=== PATIENT | female | born 1935 | race Caucasian/White ===

== ENCOUNTER 2023-07-09 09:38 | Outpatient (CLI) | payer OTHER, SELFPAY | END 2023-07-09 09:39 | disposition home or self-care (01) | LOC: ANHBWCAUD 09:39 | PROVIDERS: PCP Family Medicine; Visit Provider Otolaryngology | DX: H90.3 Sensorineural hearing loss, bilateral (principal) | CPT/HCPCS: 92557; 92567; 99199 ==

== ENCOUNTER 2024-01-12 13:51 | Inpatient (IN) | payer OTHER, SELFPAY ==
[2024-01-12] VITALS (26 sets, daily range): BP systolic 111–128; BP diastolic 76–97; PULSE 75–161; RESP 15–23; TEMP 36.3–36.7; O2SAT 91–100; BMI 21.3
--- NOTE | ~2024-01-12 | XR_ITS ---
EXAMINATION: XR chest 1V portable DATE: 01/12/2024 14:17 INDICATION: Altered mental status. TECHNIQUE: A single frontal view of the chest was obtained. COMPARISON: None. FINDINGS: Alayna B-lines are noted, consistent with mild pulmonary edema. A calcified right lung nodu le is consistent with old granulomatous disease. No pleural effusion or pneumothorax. Cardiomegaly is noted. IMPRESSION: 1. Mild pulmonary edema. 2. Cardiomegaly. Reviewed, dictated and finalized at location E.
--- NOTE | ~2024-01-12 | CT_ITS ---
EXAMINATION: CT brain wo con DATE: 01/12/2024 15:18 INDICATION: Aphasia. Right-sided facial weakness. TECHNIQUE: Computed tomography (CT) of the head was performed without intravenous contrast. The mA wa s adjusted according to patient size. Iterative reconstruction technique was employed. The dose-lengt h product was 605.33 mGy-cm. COMPARISON: None FINDINGS: There is an infarct involving left temporal occipital region. There are scattered areas of low attenuation in the cerebral white matter. There is no intracranial hemorrhage or abnormal mass le shahla. There is mucosal thickening in the paranasal sinuses. The mastoid air cells are normal. There a re likely changes of ocular lens replacement surgeries. IMPRESSION: 1. Acute versus subacute infarct involving left temporal occipital region. 2. Extensive nonspecific cerebral white matter disease, which likely represents chronic small vessel ischemic disease. Reviewed, dictated and finalized at location E.
--- NOTE | ~2024-01-12 | XR_ITS ---
XR chest 1V portable 01/16/2024 10:37 Indication: Altered mental status Procedure: AP portable chest Comparison: 01/12/2024 Findings: Cardiomegaly. There are calcified right hilar lymph nodes, consistent with chronic granulom atous infection. No significant pleural effusion or pneumothorax. No focal airspace disease. No edema. Impression: 1: No acute cardiopulmonary disease. Reviewed, dictated and finalized at location B. Impression: 1: No acute cardiopulmonary disease.
--- NOTE | ~2024-01-12 | MR_ITS ---
EXAMINATION: MRA brain wo con DATE: 01/13/2024 18:22 INDICATION: Stroke. Aphasia. TECHNIQUE: Magnetic resonance angiography (MRA) of the brain was performed without intravenous contra st with T1-weighted SPGR by the 3D [id number] technique. Maximum intensity projection 3D-reconstr uctions were obtained. COMPARISON: Brain MRI 01/13/2024 FINDINGS: Right vertebral artery is dominant. There is no significant stenosis of basilar artery or the posteri or cerebral arteries. There is no significant stenosis of the intracranial internal carotid arteries or anterior or middle cerebral arteries. Anterior communicating artery is normal. Right posterior com municating artery is normal. A left posterior communicating artery is not identified. IMPRESSION: 1. No aneurysm or significant intracranial arterial stenosis. Reviewed, dictated and finalized at location E.
--- NOTE | ~2024-01-12 | US_ITS ---
EXAMINATION: US carotid duplex BI DATE: 01/13/2024 14:20 INDICATION: Left-sided stroke with worsening aphasia TECHNIQUE: Grayscale, color Doppler, and pulsed Doppler images of the cervical carotid arteries were obtained. The degree of vessel stenosis is placed in one of the following categories: normal, <50%, 5 0-69%, >=70% but less than near-occlusion, near-occlusion, or total occlusion. Note that percent sten osis relative to normal distal artery lumen diameter is indirectly measured from velocity measurement s as described by Manan, et al. Radiology 2003; 229:340-346. COMPARISON: None. FINDINGS: RIGHT: The right common carotid artery (CCA) peak systolic velocity (PSV) is 43 cm/s. The right internal car otid artery (ICA) PSV is 46 cm/s. The right ICA end-diastolic velocity (EDV) is 13 cm/s. The right IC A/CCA PSV ratio is 1.1. Grayscale and color Doppler images yield an estimate of <50% diameter reducti on from plaque in the ICA. The external carotid artery (ECA) PSV is 46 cm/s. There is antegrade flow in the right vertebral artery. LEFT: The left CCA PSV is 49 cm/s. The left ICA PSV is 51 cm/s. The left ICA EDV is 15 cm/s. The left ICA/C CA PSV ratio is 1.0. Grayscale and color Doppler images yield an estimate of <50% diameter reduction from plaque in the ICA. The ECA PSV is 102 cm/s. There is retrograde high flow with high resistance w aveform in the left vertebral artery. IMPRESSION: 1. <50% stenosis in the right internal carotid artery. 2. <50% stenosis in the left internal carotid artery. 3. Flow reversal in the left vertebral artery. 4. Cardiac arrhythmia is present. Correlate with EKG. Reviewed, dictated and finalized at location A.
--- NOTE | ~2024-01-12 | MR_ITS ---
EXAMINATION: MR brain/brain stem wo con DATE: 01/13/2024 12:08 INDICATION: Worsening aphasia. TECHNIQUE: Magnetic resonance imaging (MRI) of the brain and brainstem was performed without intraven ous contrast. COMPARISON: Head CT 01/12/24 FINDINGS: There is an acute infarct involving left temporal occipital region. Low signal in this dist ribution on susceptibility weighted imaging may be calcifications or microhemorrhage. There is an acu te infarct involving the left frontal lobe. There are foci of cortical calcification in left parietal lobe, consistent with cortical necrosis. There are scattered areas of nonspecific increased T2-weigh johan signal intensity in the cerebral white matter. There is no abnormal mass lesion. The ventricles a re normal in size. There are likely changes of ocular lens replacement surgeries. There is mucosal th ickening in the paranasal sinuses. The mastoid air cells are normal. IMPRESSION: 1. Acute infarct in left temporal occipital region with foci of calcifications versus microhemorrhage . 2. Acute infarct in left frontal lobe. 3. Foci of chronic cortical necrosis in left parietal lobe. Reviewed, dictated and finalized at location E. IMPRESSION: 1. Acute infarct in left temporal occipital region with foci of calcifications versus microhemorrhage. 2. Acute infarct in left frontal lobe. 3. Foci of chronic cortical necrosis in left parietal lobe.
--- NOTE | 2024-01-12 14:11 | ED.NEUROSD ---
HPI - Neuro Symptoms/Deficit General Chief Complaint: Neuro Symptoms/Deficit Stated Complaint: poss CVA Time Seen by Provider: 01/12/24 13:58 Limitations: language barrier and altered mental status History of Present Illness HPI Narrative: This is an 88-year-old female, with recent history of stroke 5 days ago for which she received tenecteplase at an outside hospital, brought in by EMS from her [facility] for 1 day's worth of worsening aphasia. Per EMS, [facility] staff noted the patient previously aphasia, though was able to identify objects. Yesterday they noticed symptoms were worsening around 13:00. Today, her symptoms continued and EMS was called. The patient is unable to adequately verbalize symptoms though indicates no pain or obvious complaints. Related Data Home Medications Medication Instructions Recorded Confirmed furosemide 20 mg tablet 20 mg PO QAM 05/16/23 01/12/24 aspirin 325 mg tablet,delayed 325 mg PO DAILY 01/08/24 01/12/24 release metoprolol tartrate 50 mg tablet 50 mg PO Q12H 01/08/24 01/12/24 enoxaparin 30 mg/0.3 mL 30 mg subcut DAILY 01/12/24 01/12/24 subcutaneous syringe pantoprazole 40 mg tablet,delayed 40 mg PO QAM 01/12/24 01/12/24 release Allergies Allergy/AdvReac Type Severity Reaction Status Date / Time Penicillins Allergy Intermediate Swelling Verified 01/08/24 13:06 iodine Allergy Anaphylaxis Verified 01/12/24 14:29 shell fish Allergy Intermediate Unknown Uncoded 01/08/24 13:06 Review of Systems Review of Systems: ROS unobtainable: Yes unobtainable due to mental status PMFSH Past Medical History Medical History A-fib Arthritis CVA (cerebral vascular accident) FH: HTN (hypertension) GERD (gastroesophageal reflux disease) Family History Family History Father Hypertension Mother Hypertension Cerebrovascular accident Sibling Hypertension Heart disease Social History Social History Social History: Caffeine-coffee Smoking status: Former smoker Alcohol intake: never Substance use: never Substance use type: does not use Do You Feel Safe in your Home?: Yes Lack of Transportation: No Lack of Food: Never True Current Housing: I Have Housing Concerned About Future Housing: No Difficulty Paying Gas/Electric Bills: No Difficulty Paying for Meds: No Currently Unemployed: No Education: High School Diploma/GED Difficulty w/ Childcare or Family Care: No Occupation/Education: retired Gender identity (if verbalized by the patient): Female Spiritual care concerns: No Agree to blood products: Yes Exam Narrative: GENERAL: Well-developed, well-nourished, and in no acute distress. HEAD: Normocephalic, atraumatic. EYES: PERRLA and EOMI. ENT: Nares clear, no rhinorrhea or epistaxis. Mucous membranes moist. Oropharynx without tonsillar hypertrophy exudate or other lesions. CHEST: Clear to auscultation. No respiratory distress. No wheezes rales or rhonchi HEART: Regular rate and rhythm. No murmur heard. Normal peripheral pulses. ABDOMEN: Soft, nontender, nondistended, normal active bowel sounds. EXTREMITIES: Normal range of motion. No edema. SKIN: Warm, dry, no rash. NEURO: Alert. Word salad. Unable to identify objects. Follows commands. Moving all 4 limbs spontaneously PSYCH: Normal mood and affect. Course Course Emergency Course: 14:09 - Initial NIH 3 with baseline deficits. Given the patient's recent treatment with tenecteplase, recent ischemic stroke and onset of symptoms 24 hours ago, though she is not a candidate for thrombolytics. CT head not concerning for intracranial hemorrhage and shows changes consistent with a recent ischemic stroke without other acute findings. I discussed the patient with neurologist, Dr. Dawson who recommends observation and consider
--- NOTE | 2024-01-12 14:12 | ECG_ITS ---
SEE SCANNED COPY FOR CONFIRMED REPORT MTDD
[2024-01-12 14:28] LABS: Basophils Absolute Auto 0.1 K/mm3 (0.0-0.1); Basophils Percent Auto 0.6 % (0.2-1.2); Eosinophils Absolute Auto 0.2 K/mm3 (0-0.3); Hematocrit 44.7 % (37.0-47.0); Hemoglobin 14.1 g/dL (12.0-15.0); Immature Granulocyte Absolute 0.03 K/mm3 (0.00-0.031); Immature Granulocyte Percent A 0.3 % (0-0.5); Lymphocytes Absolute Auto 1.84 K/mm3 (0.9-3.2); Lymphocytes Percent Auto 19.1 % (18.3-44.2); Mean Corpuscular HGB Conc 31.5 g/dl (32-36); Mean Corpuscular Volume 88.9 fl (80-100); Mean Platelet Volume 10.3 fl (7.4-10.4); Monocytes Percent Auto 10.7 % (2.6-8.5); Neutrophils Absolute Auto 6.5 K/mm3 (1.3-6.7); Neutrophils Percent Auto 67.3 % (45.5-73.1); Platelet Count Result 345 k/mm3 (150-375); Red Blood Count 5.03 M/mm3 (4.2-5.4); Red Cell Distribution Width 14.1 % (11.5-14.5); White Blood Count 9.6 K/mm3 (4.5-10.0)
[2024-01-12 14:37] LABS: Ethanol < 10 mg/dL (<10)
[2024-01-12 14:38] LABS: Alanine Aminotransferase 23 U/L (6-35); Albumin Level 4.2 g/dL (3.5-5.1); Alkaline Phosphatase 110 U/L (38-126); Anion Gap 6 mmol/L (4-12); Aspartate Amino Transferase 30 U/L (14-36); Bilirubin,Total 0.5 mg/dL (0.2-1.3); Blood Urea Nitrogen 33 mg/dL (7-17); Calcium 9.5 mg/dL (8.4-10.2); Carbon Dioxide 30 mmol/L (22-30); Chloride 103 mmol/L (98-107); Estimated CRCL calculation 28 ml/min; Estimated Glomerular Filt Rate 52; Glucose 122 mg/dL (65-110); Sodium 139 mmol/L (137-145)
[2024-01-12 14:39] LABS: Prothrombin Time 13.8 Seconds (11.1-14.7)
[2024-01-12 14:40] LABS: Partial Thromboplastin Time 32.5 Seconds (22.3-36.8)
[2024-01-12 15:04] LABS: Influenza A QL RT-PCR Negative (Negative); Influenza B QL RT-PCR Negative (Negative); RSV RNA, RT-PCR Negative (Negative); SARS-CoV-2 RNA PCR Negative (Negative)
[2024-01-12 15:44] LABS: Appearance Urine Clear (Clear); Bilirubin Urine Negative (Negative); Blood Urine Negative (Negative); Color Urine Yellow (Yellow); Glucose Urine UA Negative (Negative); Ketones Urine Negative (Negative); Leukocyte Esterase Ur Negative LEU/UL (Negative); Nitrate Urine Negative (Negative); Protein Urine Negative (Negative); Urobilinogen Urine 0.2 mg/dL (<2.0); pH Urine 5.5 (5.0-9.0)
[2024-01-12 15:48] LABS: Add Urine Microscopic? NO
[2024-01-12 16:02] LABS: Amphetamine Screen Urine Negative (Negative); Barbiturate Screen Urine Negative (Negative); Benzodiazepines Screen Urine Negative (Negative); Cannabinoid Screen Urine Negative (Negative); Cocaine Screen Urine Negative (Negative); Methadone Screen Urine Negative (Negative); Opiate Screen Urine Negative (Negative); Phencyclidine Screen Urine Negative (Negative)
--- NOTE | 2024-01-12 18:09 | ADMGEN ---
This patient, Gwen Kaiser, was admitted to IMU Room 206-02. Patient/family oriented to hospital policies and general routines including ID bracelet, bed and alarms, visiting hours, pain management, procedures, bathroom and other care routines, personal items, smoking policy, room service/diet, and visiting hours. Information on how to activate the Rapid Response Team has been discussed. Patient/Family are encouraged to report perceived risks to care and to ask questions if they do not understand what they are told or what they should do.
--- NOTE | 2024-01-12 20:18 | PM.IMHP ---
H&P: HPI History of Present Illness Date/Time: 01/12/24 20:18 Chief Complaint: AMS Narrative: THIS IS AN 88-YEAR-OLD FEMALE WITH PAST MEDICAL HISTORY SIGNIFICANT FOR RECENT STROKE PATIENT WAS DISCHARGED FROM AN OUTSIDE FACILITY TO REHABILITATION CENTER SHE WAS SENT TO EMERGENCY ROOM FOR EVALUATION AFTER ALTERED MENTAL STATUS. AT THE TIME OF MY VISIT PATIENT IS DELIRIOUS UNABLE TO GIVE ANY MEANINGFUL HISTORY. PRELIMINARY WORKUP WAS SIGNIFICANT FOR ACUTE VERSUS SUBACUTE LEFT TEMPORAL STROKE. PATIENT IS BEEN PLACED IN OBSERVATION FOR FURTHER EVALUATION MANAGEMENT AND TREATMENT. EXAMINATION: XR chest 1V portable DATE: 01/12/2024 14:17 INDICATION: Altered mental status. TECHNIQUE: A single frontal view of the chest was obtained. COMPARISON: None. FINDINGS: Alayna B-lines are noted, consistent with mild pulmonary edema. A calcified right lung nodule is consistent with old granulomatous disease. No pleural effusion or pneumothorax. Cardiomegaly is noted. IMPRESSION: 1. Mild pulmonary edema. 2. Cardiomegaly. EXAMINATION: CT brain wo con DATE: 01/12/2024 15:18 INDICATION: Aphasia. Right-sided facial weakness. TECHNIQUE: Computed tomography (CT) of the head was performed without intravenous contrast. The mA was adjusted according to patient size. Iterative reconstruction technique was employed. The dose-length product was 605.33 mGy-cm. COMPARISON: None FINDINGS: There is an infarct involving left temporal occipital region. There are scattered areas of low attenuation in the cerebral white matter. There is no intracranial hemorrhage or abnormal mass lesion. There is mucosal thickening in the paranasal sinuses. The mastoid air cells are normal. There are likely changes of ocular lens replacement surgeries. IMPRESSION: 1. Acute versus subacute infarct involving left temporal occipital region. 2. Extensive nonspecific cerebral white matter disease, which likely represents chronic small vessel ischemic disease. Review of Systems Review of Systems: ROS unobtainable: Yes unobtainable due to mental status ( DELIRIUM) [facility] Past Medical History Medical History A-fib Arthritis CVA (cerebral vascular accident) FH: HTN (hypertension) GERD (gastroesophageal reflux disease) Family History Family History Father Hypertension Mother Hypertension Cerebrovascular accident Sibling Hypertension Heart disease Social History Social History Social History: Caffeine-coffee Smoking status: Former smoker Alcohol intake: never Substance use: never Substance use type: does not use Do You Feel Safe in your Home?: Yes Lack of Transportation: No Lack of Food: Never True Current Housing: I Have Housing Concerned About Future Housing: No Difficulty Paying Gas/Electric Bills: No Difficulty Paying for Meds: No Currently Unemployed: No Education: High School Diploma/GED Difficulty w/ Childcare or Family Care: No Occupation/Education: retired Gender identity (if verbalized by the patient): Female Spiritual care concerns: No Agree to blood products: Yes Meds Home Medications and Allergies Home Medications Medication Instructions Recorded Confirmed Type furosemide 20 mg tablet 20 mg PO QAM 05/16/23 01/12/24 History aspirin 325 mg tablet,delayed 325 mg PO DAILY 01/08/24 01/12/24 History release metoprolol tartrate 50 mg tablet 50 mg PO Q12H 01/08/24 01/12/24 History enoxaparin 30 mg/0.3 mL 30 mg subcut DAILY 01/12/24 01/12/24 History subcutaneous syringe pantoprazole 40 mg tablet,delayed 40 mg PO QAM 01/12/24 01/12/24 History release Allergies Allergy/AdvReac Type Severity Reaction Status Date / Time Penicillins Allergy Intermediate Swelling Verified 01/08/24 13:06 iodine Allergy Anaphylaxis Verifi
[2024-01-13] VITALS (21 sets, daily range): BP systolic 111–126; BP diastolic 73–88; PULSE 72–113; RESP 17–18; TEMP 36.1–36.9; O2SAT 95–98
[2024-01-13] MEDS: METOPROLOL TARTRATE 50 MG TAB PO ×3 (00:07→20:49)
[2024-01-13 04:07] LABS: Basophils Absolute Auto 0.1 K/mm3 (0.0-0.1); Basophils Percent Auto 0.6 % (0.2-1.2); Eosinophils Absolute Auto 0.2 K/mm3 (0-0.3); Eosinophils Percent Auto 2.3 % (0-4.4); Hematocrit 43.8 % (37.0-47.0); Hemoglobin 13.7 g/dL (12.0-15.0); Immature Granulocyte Absolute 0.05 K/mm3 (0.00-0.031); Immature Granulocyte Percent A 0.5 % (0-0.5); Lymphocytes Absolute Auto 2.94 K/mm3 (0.9-3.2); Lymphocytes Percent Auto 31.5 % (18.3-44.2); Mean Corpuscular HGB Conc 31.3 g/dl (32-36); Mean Corpuscular Hemoglobin 27.6 pg (26-34); Mean Corpuscular Volume 88.1 fl (80-100); Mean Platelet Volume 10.4 fl (7.4-10.4); Monocytes Absolute Auto 1.2 K/mm3 (0.1-0.6); Monocytes Percent Auto 12.8 % (2.6-8.5); Neutrophils Absolute Auto 4.9 K/mm3 (1.3-6.7); Neutrophils Percent Auto 52.3 % (45.5-73.1); Platelet Count Result 331 k/mm3 (150-375); Red Blood Count 4.97 M/mm3 (4.2-5.4); Red Cell Distribution Width 13.9 % (11.5-14.5); White Blood Count 9.3 K/mm3 (4.5-10.0)
[2024-01-13 04:25] LABS: Anion Gap 8 mmol/L (4-12); Blood Urea Nitrogen 29 mg/dL (7-17); Calcium 10.3 mg/dL (8.4-10.2); Carbon Dioxide 27 mmol/L (22-30); Chloride 106 mmol/L (98-107); Estimated CRCL calculation 28 ml/min; Estimated Glomerular Filt Rate 59; Glucose 112 mg/dL (65-110); Potassium 4.2 mmol/L (3.4-5.0); Sodium 141 mmol/L (137-145)
--- NOTE | 2024-01-13 09:26 | WPDNEURCNPN ---
Assessment and Plan Assessment and plan (1) CVA (cerebral vascular accident): Code(s): I63.9 - Cerebral infarction, unspecified Status: Acute Assessment and Plan: Patient was given treatment with their TNK on 01/07/2000 24 at [facility]. She has should aphasia and has been brought to hospital in view of the development of the same. Significant risk factors include atrial fibrillation bursae was on anticoagulation in the past but currently not on the same. (2) Vision disturbance following CVA (cerebrovascular accident): Code(s): I69.398 - Other sequelae of cerebral infarction; H53.9 - Unspecified visual disturbance Status: Acute Assessment and Plan: Infarct in the left posterior parietal temporal occipital area can lead to right homonymous hemianopsia however visual turcios were difficult to assess (3) A-fib: Code(s): I48.91 - Unspecified atrial fibrillation Status: Acute Assessment and Plan: In the past he has been on anticoagulation however apparently she is on anticoagulation. 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 This is particularly harder in view of the fact that I suspect she may have some hearing loss. At night she was thought to be somewhat confused and the possibility of underlying vascular dementia has also been raised. (5) HTN (hypertension): Code(s): I10 - Essential (primary) hypertension Status: Acute Plan 1. Carotid Doppler Study 2. Atorvastatin 40 mg a day while we investigate her further with lipid profile also check her serum B12 and folic acid level vitamin-D thyroid function test 3. Obtain results of CT angiogram from [facility] 4. Consult Cardiology regarding starting her back on anticoagulation 5. Speech and physical therapy are recommended. She may probably also benefit from a hearing aid. 6. Follow up with the results of these. Thank you very much Consult date: 01/13/24 HPI: Gwen Kaiser is a 88 year old female with history of stroke with right-sided weakness on 01/07/2000 24. She was taken to [facility]. I do not have access to the findings of the neurologist or CT angiogram however she was apparently doing well and was discharged to a nursing facility for rehab. She was readmitted since he developed new findings particularly speech disturbance. She has atrial fibrillation he is not on anticoagulation. She was given TNK to treat her stroke. I do not believe that she was transfer for any arthrectomy. At this time the patient has difficulty with hearing and speech persist seems to moving both upper and lower limbs. The history was obtained from the records and the patient however patient is not able to give me details account. She denies any headache. Review of Systems Review of Systems: ROS unobtainable: Yes unobtainable due to mental status (Specially due to aphasia and hearing loss) PMF Past Medical History Medical History A-fib Arthritis CVA (cerebral vascular accident) FH: HTN (hypertension) GERD (gastroesophageal reflux disease) Family History Family History Father Hypertension Mother Hypertension Cerebrovascular accident Sibling Hypertension Heart disease Social History Social History Social History: Caffeine-coffee Smoking status: Former smoker Alcohol intake: never Substance use: never Substance use type: does not use Do You Feel Safe in your Home?: Yes Lack of Transportation: No Lack of Food: Never True Current Housing: I Have Housing Concerned About Future Housing: No Difficulty Paying Gas/Electric Bills: No Difficulty Paying for Meds: No Currently Unemployed: No Education: High School D
[2024-01-13] MEDS: ASPIRIN 325 MG ENTERIC TABLET PO (09:42)
[2024-01-13] MEDS: PANTOPRAZOLE 40 MG TABLET PO (09:42)
[2024-01-13] MEDS: ENOXAPARIN 30 MG/0.3 ML SYRINGE SUB-Q (09:43)
[2024-01-13 10:41] LABS: Cholesterol 186 mg/dL (0-200); HDL Direct 26 mg/dL; Triglycerides 126 mg/dL (<150)
[2024-01-13 10:51] LABS: LDL Cholesterol Direct 128 mg/dL
[2024-01-13 11:03] LABS: Vitamin D 25 Hydroxy 55.9 ng/mL
[2024-01-13 11:52] LABS: Folic Acid > 20.0 ng/mL (2.76->20); Vitamin B12 > 1000.0 pg/mL (239-931)
--- NOTE | 2024-01-13 13:11 | PM.IMPN ---
Progress Note: A&P Assessment and Plan (1) CVA (cerebral vascular accident): Code(s): I63.9 - Cerebral infarction, unspecified Status: Acute (2) A-fib: Code(s): I48.91 - Unspecified atrial fibrillation Status: Acute (3) Aphasia: Code(s): R47.01 - Aphasia Status: Acute (4) Gait abnormality: Code(s): R26.9 - Unspecified abnormalities of gait and mobility Status: Acute (5) GERD (gastroesophageal reflux disease): Code(s): K21.9 - Gastro-esophageal reflux disease without esophagitis Status: Acute Plan This is an 88-year-old female past medical history significant for recent stroke. Patient some outside hospital rehabilitation center at she was found to be altered and hence was sent to ER for evaluation. On ED evaluation chest x-ray showed mild pulmonary edema with cardiomegaly. CT head without contrast showed acute versus subacute infarct involving left temporal occipital region and extensive nonspecific cerebral white matter disease which likely represents chronic small vessel ischemic disease. Laboratory evaluation revealed hemoglobin of 14 WBC 9.6 platelet of 345 creatinine of 1 BUN of 33 electrolytes okay LFTs were normal. Urinalysis was negative. Left MCA territory infarct. MRI brain revealed developing left MCA CVA. Status post tenecteplase. On aspirin and statin. E 01/07/2024: EF 60 65% left atrium has smoke but no discrete thrombus left and right atrial appendages showed reduced velocities but no thrombus aorta scattered mild atherosclerosis no clots or vegetations MRI brain 01/04/2024: Evolving acute infarct about the left cerebral architecture within the left MCA distribution associated infarct/dayne-infarct edema with resultant mass effect producing multifocal sulcal effacement without midline shift or herniation and slight focus of left parietal infarct hemorrhagic products. Repeat MRI brain 01/13/2024 with acute infarct in left temporal occipital region with foci of echo calcification versus micro hemorrhages acute infarct in left frontal lobe foci of chronic cortical necrosis in left parietal lobe With multifocal the stroke suspected embolic related to atrial fibrillation ? Seizure Carotid Doppler 01/03/2024 with less than 50% stenosis in bilateral ICA History of atrial fibrillation not on anticoagulation was recently treated with Eliquis in the past but has not been taking as refused by the patient. Due to recurrent symptoms likely related to underlying atrial fibrillation. Hypertension Hyperlipidemia known history of hyperlipidemia 1 year ago her cholesterol level was 249/39/174/180. Recent lipid profile 172/30/100/209 Type 2 diabetes recent HGB A1c was 7.4. Lipid panel with LDL 100 and triglyceride 209 HDL was low at 30 GERD DVT prophylaxis Lovenox currently but will start anticoagulation with Eliquis if okay from Neurology Subjective Date/time seen: 01/13/24 13:11 Interval history: This is an 88-year-old female past medical history significant for recent stroke. Patient some outside hospital rehabilitation center at she was found to be altered and hence was sent to ER for evaluation. On ED evaluation chest x-ray showed mild pulmonary edema with cardiomegaly. CT head without contrast showed acute versus subacute infarct involving left temporal occipital region and extensive nonspecific cerebral white matter disease which likely represents chronic small vessel ischemic disease. Laboratory evaluation revealed hemoglobin of 14 WBC 9.6 platelet of 345 creatinine of 1 BUN of 33 electrolytes okay LFTs were normal. Urinalysis was negative. Left MCA territory infarct. MRI brain revealed developing left MCA CVA. Status post tenecteplase. On aspirin and statin. E 01/07/2024: EF 60 65% left atrium has smoke but no discrete thrombus left and right atrial appendages showed reduced velocities but no thrombus aorta scattered mild atherosclerosis no clots or vegetations MRI brain
[2024-01-13 15:47] LABS: Hemoglobin A1C 5.5 % (<5.7)
[2024-01-13] MEDS: APIXABAN 2.5 MG TABLET PO (20:49)
[2024-01-13] MEDS: ATORVASTATIN 40 MG TABLET PO (20:49)
[2024-01-14] VITALS (18 sets, daily range): BP systolic 98–140; BP diastolic 60–89; PULSE 80–122; RESP 12–24; TEMP 36.3–36.8; O2SAT 94–99
[2024-01-14 04:59] LABS: Basophils Absolute Auto 0.1 K/mm3 (0.0-0.1); Basophils Percent Auto 0.8 % (0.2-1.2); Eosinophils Absolute Auto 0.2 K/mm3 (0-0.3); Eosinophils Percent Auto 1.4 % (0-4.4); Hematocrit 45.4 % (37.0-47.0); Hemoglobin 14.3 g/dL (12.0-15.0); Immature Granulocyte Absolute 0.04 K/mm3 (0.00-0.031); Immature Granulocyte Percent A 0.3 % (0-0.5); Lymphocytes Percent Auto 25.8 % (18.3-44.2); Mean Corpuscular HGB Conc 31.5 g/dl (32-36); Mean Corpuscular Hemoglobin 27.9 pg (26-34); Mean Corpuscular Volume 88.7 fl (80-100); Mean Platelet Volume 10.4 fl (7.4-10.4); Monocytes Absolute Auto 1.2 K/mm3 (0.1-0.6); Neutrophils Absolute Auto 7.2 K/mm3 (1.3-6.7); Neutrophils Percent Auto 61.7 % (45.5-73.1); Platelet Count Result 356 k/mm3 (150-375); Red Blood Count 5.12 M/mm3 (4.2-5.4); Red Cell Distribution Width 13.7 % (11.5-14.5); White Blood Count 11.6 K/mm3 (4.5-10.0)
[2024-01-14 05:08] LABS: Alanine Aminotransferase 21 U/L (6-35); Albumin Level 4.3 g/dL (3.5-5.1); Alkaline Phosphatase 114 U/L (38-126); Anion Gap 8 mmol/L (4-12); Aspartate Amino Transferase 27 U/L (14-36); Bilirubin,Total 0.7 mg/dL (0.2-1.3); Blood Urea Nitrogen 28 mg/dL (7-17); Calcium 9.9 mg/dL (8.4-10.2); Carbon Dioxide 28 mmol/L (22-30); Chloride 103 mmol/L (98-107); Estimated CRCL calculation 28 ml/min; Estimated Glomerular Filt Rate 59; Glucose 111 mg/dL (65-110); Magnesium 2.4 mg/dL (1.6-2.3); Potassium 4.6 mmol/L (3.4-5.0); Sodium 139 mmol/L (137-145)
[2024-01-14] MEDS: PANTOPRAZOLE 40 MG TABLET PO (08:49)
[2024-01-14] MEDS: METOPROLOL TARTRATE 50 MG TAB PO ×2 (08:49→20:42)
[2024-01-14] MEDS: APIXABAN 2.5 MG TABLET PO ×2 (08:49→20:42)
[2024-01-14] MEDS: ENOXAPARIN 30 MG/0.3 ML SYRINGE SUB-Q (08:49)
--- NOTE | 2024-01-14 10:14 | PM.IMPN ---
Progress Note: A&P Assessment and Plan (1) CVA (cerebral vascular accident): Code(s): I63.9 - Cerebral infarction, unspecified Status: Acute (2) A-fib: Code(s): I48.91 - Unspecified atrial fibrillation Status: Acute (3) Aphasia: Code(s): R47.01 - Aphasia Status: Acute (4) Gait abnormality: Code(s): R26.9 - Unspecified abnormalities of gait and mobility Status: Acute (5) GERD (gastroesophageal reflux disease): Code(s): K21.9 - Gastro-esophageal reflux disease without esophagitis Status: Acute Plan This is an 88-year-old female past medical history significant for recent stroke. Patient some outside hospital rehabilitation center at she was found to be altered and hence was sent to ER for evaluation. On ED evaluation chest x-ray showed mild pulmonary edema with cardiomegaly. CT head without contrast showed acute versus subacute infarct involving left temporal occipital region and extensive nonspecific cerebral white matter disease which likely represents chronic small vessel ischemic disease. Laboratory evaluation revealed hemoglobin of 14 WBC 9.6 platelet of 345 creatinine of 1 BUN of 33 electrolytes okay LFTs were normal. Urinalysis was negative. Left MCA territory infarct. MRI brain revealed developing left MCA CVA. Status post tenecteplase. On aspirin and statin. E 01/07/2024: EF 60 65% left atrium has smoke but no discrete thrombus left and right atrial appendages showed reduced velocities but no thrombus aorta scattered mild atherosclerosis no clots or vegetations MRI brain 01/04/2024: Evolving acute infarct about the left cerebral architecture within the left MCA distribution associated infarct/dayne-infarct edema with resultant mass effect producing multifocal sulcal effacement without midline shift or herniation and slight focus of left parietal infarct hemorrhagic products. Repeat MRI brain 01/13/2024 with acute infarct in left temporal occipital region with foci of echo calcification versus micro hemorrhages acute infarct in left frontal lobe foci of chronic cortical necrosis in left parietal lobe With multifocal the stroke suspected embolic related to atrial fibrillation After discussion with Neurology started on Eliquis. MRA negative for aneurysm and significant intracranial stenosis. ? Seizure Carotid Doppler 01/03/2024 with less than 50% stenosis in bilateral ICA History of atrial fibrillation not on anticoagulation was recently treated with Eliquis in the past but has not been taking as refused by the patient. Due to recurrent symptoms likely related to underlying atrial fibrillation. AFib with mild RVR today adjust dose of metoprolol. Hypertension Hyperlipidemia known history of hyperlipidemia 1 year ago her cholesterol level was 249/39/174/180. Recent lipid profile 172/30/100/209 started on atorvastatin Type 2 diabetes recent HGB A1c was 7.4. Lipid panel with LDL 100 and triglyceride 209 HDL was low at 30 GERD DVT prophylaxis on Eliquis now Disposition likely back to [facility] pending PT OT evaluation and heart rate control Subjective Date/time seen: 01/14/24 10:14 Interval history: This is an 88-year-old female past medical history significant for recent stroke. Patient some outside hospital rehabilitation center at she was found to be altered and hence was sent to ER for evaluation. On ED evaluation chest x-ray showed mild pulmonary edema with cardiomegaly. CT head without contrast showed acute versus subacute infarct involving left temporal occipital region and extensive nonspecific cerebral white matter disease which likely represents chronic small vessel ischemic disease. Laboratory evaluation revealed hemoglobin of 14 WBC 9.6 platelet of 345 creatinine of 1 BUN of 33 electrolytes okay LFTs were normal. Urinalysis was negative. Left MCA territory infarct. MRI brain revealed developing left MCA CVA. Status post tenecteplase. On aspirin and statin. E 01/07/2024:
[2024-01-14] MEDS: METOPROLOL TARTRATE 12.5 MG TABLET PO ×2 (10:46→20:42)
[2024-01-14] MEDS: ATORVASTATIN 40 MG TABLET PO (20:42)
[2024-01-15] VITALS (19 sets, daily range): BP systolic 104–131; BP diastolic 63–88; PULSE 71–119; RESP 12–17; TEMP 36.1–36.8; O2SAT 94–100
[2024-01-15 05:20] LABS: Basophils Absolute Auto 0.1 K/mm3 (0.0-0.1); Basophils Percent Auto 0.7 % (0.2-1.2); Eosinophils Absolute Auto 0.3 K/mm3 (0-0.3); Eosinophils Percent Auto 2.6 % (0-4.4); Hematocrit 45.6 % (37.0-47.0); Immature Granulocyte Absolute 0.05 K/mm3 (0.00-0.031); Immature Granulocyte Percent A 0.4 % (0-0.5); Lymphocytes Absolute Auto 3.03 K/mm3 (0.9-3.2); Mean Corpuscular HGB Conc 30.7 g/dl (32-36); Mean Corpuscular Hemoglobin 27.4 pg (26-34); Mean Corpuscular Volume 89.2 fl (80-100); Mean Platelet Volume 10.3 fl (7.4-10.4); Monocytes Absolute Auto 1.3 K/mm3 (0.1-0.6); Monocytes Percent Auto 10.2 % (2.6-8.5); Neutrophils Absolute Auto 7.9 K/mm3 (1.3-6.7); Neutrophils Percent Auto 62.1 % (45.5-73.1); Platelet Count Result 343 k/mm3 (150-375); Red Blood Count 5.11 M/mm3 (4.2-5.4); Red Cell Distribution Width 13.7 % (11.5-14.5); White Blood Count 12.6 K/mm3 (4.5-10.0)
[2024-01-15 05:35] LABS: Alanine Aminotransferase 18 U/L (6-35); Albumin Level 4.2 g/dL (3.5-5.1); Alkaline Phosphatase 109 U/L (38-126); Anion Gap 8 mmol/L (4-12); Aspartate Amino Transferase 28 U/L (14-36); Bilirubin,Total 0.7 mg/dL (0.2-1.3); Blood Urea Nitrogen 26 mg/dL (7-17); Calcium 10.2 mg/dL (8.4-10.2); Carbon Dioxide 27 mmol/L (22-30); Chloride 107 mmol/L (98-107); Estimated CRCL calculation 28 ml/min; Estimated Glomerular Filt Rate 59; Glucose 105 mg/dL (65-110); Magnesium 2.4 mg/dL (1.6-2.3); Potassium 4.7 mmol/L (3.4-5.0); Sodium 142 mmol/L (137-145)
[2024-01-15 07:32] LABS: T3 Free 2.4
[2024-01-15] MEDS: PANTOPRAZOLE 40 MG TABLET PO (10:06)
[2024-01-15] MEDS: METOPROLOL TARTRATE 12.5 MG TABLET PO ×2 (10:06→21:22)
[2024-01-15] MEDS: METOPROLOL TARTRATE 50 MG TAB PO ×2 (10:06→21:21)
[2024-01-15] MEDS: APIXABAN 2.5 MG TABLET PO ×2 (10:06→21:21)
--- NOTE | 2024-01-15 10:31 | PC.NURSE ---
0800am this patient refused to allow automotive engineering technician take vital signs.
--- NOTE | 2024-01-15 12:02 | WPDNEUROPN ---
Subjective Date/time seen: 01/15/24 12:02 Interval history: 88 years old lady with history of stroke resultant right hemiparesis subsequent to the evaluation in other institution was discharged to rehab where she was noted to have increasing difficulties with speech and in view of the underlying atrial fibrillation and anticoagulation therapy she was transferred to the hospital, evaluation up until now revealed acute infarct in left temporal occipital region with foci of calcification versus microhemorrhages, acute infarct in left frontal lobe and foci of chronic cortical necrosis in left parietal lobe as well, Doppler study of the carotid documented less than 50% stenosis in the right and left internal carotid artery in addition to flow reversal in the left vertebral artery and underlying cardiac arrhythmia as well, brain MRA is negative for aneurysm an initial CT scan of the head was also negative for any bleed except the documentation of the acute stroke patient is receiving apixaban 2.5mg q.12 hours in addition to atorvastatin 40mg at night. Considering the documentation of the left vertebral steal she will have recurrent episodic stroke-like symptoms superimposed on the underlying cardiac pathology resulting in a recurrent stroke I explained that to the family member she can be sent back to the rehab anticoagulation therapy can be continued if they push hard we can always get the vascular consult as an outpatient at the tertiary care center though this stage he was reluctant and obviously chance of complications are high. Objective Data Vital Signs Vital Signs: Vital Signs - 24 hr 01/14/24 14:00 01/14/24 16:00 01/14/24 16:00 Temperature 36.4 C Pulse Rate 94 109 H 106 H Respiratory Rate 12 Blood Pressure 122/89 Pulse Oximetry 99 Oxygen Delivery 01/14/24 16:00 01/14/24 18:00 01/14/24 20:25 Temperature 36.4 C Pulse Rate 98 95 Respiratory Rate 12 Blood Pressure 140/79 Pulse Oximetry 98 Oxygen Delivery Room Air 01/14/24 20:42 01/14/24 20:42 01/14/24 20:00 Temperature Pulse Rate 114 H 114 H 87 Respiratory Rate Blood Pressure Pulse Oximetry Oxygen Delivery 01/14/24 20:00 01/15/24 00:00 01/14/24 22:00 Temperature 36.5 C Pulse Rate 77 111 H Respiratory Rate 12 Blood Pressure 124/70 Pulse Oximetry 95 Oxygen Delivery Room Air 01/15/24 00:00 01/15/24 00:00 01/15/24 02:00 Temperature Pulse Rate 85 79 Respiratory Rate Blood Pressure Pulse Oximetry Oxygen Delivery Room Air 01/15/24 04:27 01/15/24 04:00 01/15/24 04:00 Temperature 36.4 C Pulse Rate 75 71 Respiratory Rate 12 Blood Pressure 111/69 Pulse Oximetry 94 Oxygen Delivery Room Air 01/15/24 06:00 01/15/24 10:06 01/15/24 10:06 Temperature Pulse Rate 82 95 95 Respiratory Rate Blood Pressure Pulse Oximetry Oxygen Delivery 01/15/24 10:00 01/15/24 11:21 Temperature 36.1 C L 36.8 C Pulse Rate 95 96 Respiratory Rate 17 17 Blood Pressure 108/72 104/70 Pulse Oximetry 96 97 Oxygen Delivery Intake/Output Intake/Output: Intake & Output 01/12/24 01/13/24 01/14/24 01/15/24 23:59 23:59 23:59 23:59 Intake Total 440 1020 195 Output Total 200 403 Balance -843 50 2957 195 Meds/Results Medications: Active Medications Generic Name Dose Route Start Last Admin Trade Name Freq PRN Reason Stop Dose Admin Apixaban 2.5 mg 01/13/24 21:00 01/15/24 10:06 Apixaban 2.5 Mg Tablet PO 01/25/24 20:59 2.5 mg Q12HR ELVIA Administration Atorvastatin Calcium 40 mg 01/13/24 21:00 01/14/24 20:42 Atorvastatin 40 Mg Tablet PO 40 mg HS ELVIA Administration Metoprolol Tartrate 50 mg 01/12/24 21:25 01/15/24 10:06 Metoprolol Tartrate 50 Mg Tab PO 50 mg Q12HR ELVIA Administration Metoprolol Tartrate 12.5 mg 01/14/24 10:15 01/15/24 10:06 Metoprolol Tartrate 12.5 Mg Tablet PO 12.5 mg Q12HR ELVIA Administration Pantoprazole
--- NOTE | 2024-01-15 17:37 | PM.IMPN ---
Progress Note: A&P Assessment and Plan (1) CVA (cerebral vascular accident): Code(s): I63.9 - Cerebral infarction, unspecified Status: Acute Assessment and Plan: Patient was found to be altered at the rehab facility. CXR showed mild pulmonary edema with cardiomegaly. CT head without contrast showed acute versus subacute infarct involving left temporal occipital region and extensive nonspecific cerebral white matter disease which likely represents chronic small vessel ischemic disease. UA was negative. Labs unrevealing. Brain MRI showing acute infarct in the left temporal occipital region with foci of calcification versus microhemorrhage as well as acute infarct in left frontal lobe. There is a foci of chronic cortical necrosis in left parietal lobe Carotid US showing <50% stenosis in the bilateral internal carotid arteries. There is flow reversal in the left vertebral artery. 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 Brain MRA showed no aneurysm or significant intracranial arterial stenosis. Echo 01/07/24: EF 60-65%, left atrium has smoke but no discrete thrombus left and right atrial appendages showed reduced velocities but no thrombus aorta scattered mild atherosclerosis no clots or vegetations Patient was on aspirin but has been changed to Eliquis because of her AFib. Continue Lipitor. Neurology consulted and appreciate their input PT/OT Plan for acute rehab at discharge (2) A-fib: Code(s): I48.91 - Unspecified atrial fibrillation Status: Acute Assessment and Plan: As above. AFib was noted last month and was started on Eliquis but patient did note start. Noted to be in AFib at rehab facility but Eliquis held due to recent CVA. Eliquis started here. Rate controlled with increased dose of Metoprolol. (3) Aphasia: Code(s): R47.01 - Aphasia Status: Acute Assessment and Plan: Related to recent CVA. As above (4) Gait abnormality: Code(s): R26.9 - Unspecified abnormalities of gait and mobility Status: Acute (5) GERD (gastroesophageal reflux disease): Code(s): K21.9 - Gastro-esophageal reflux disease without esophagitis Status: Acute Assessment and Plan: Stable. Continue PPI Plan Code status - DNR DVT prophylaxis - Eliquis Disposition likely back to [facility]; continue PT OT Subjective Date/time seen: 01/15/24 17:37 Interval history: 88yo female with recent left MCA CVA s/p tenecteplase sent in from rehab for altered mental status. Assuming care. Chart reviewed. She is alert but with expressive aphasia. Hx is unreliable. Review of Systems Review of Systems: ROS unobtainable: Yes unobtainable due to mental status Exam Narrative: AF 98.2 131/88 96 16 100% ra Gen - NARD lying semi-recumbent in bed Chest - CTA bilaterally, nml RR CV - irregular. Tele showing AFib with controlled rate Abd - Soft, NT/ND, Positive BS Ext - No pedal edema Neuro - expressive aphasia. jack winder equal. Psych - Nml mood and affect Skin - Warm and dry Objective Data Vital Signs Vital Signs: Vital Signs - 24 hr 01/14/24 18:00 01/14/24 20:25 01/14/24 20:42 Temperature 97.6 F Pulse Rate 98 95 114 H Respiratory Rate 12 Blood Pressure 140/79 Pulse Oximetry 98 Oxygen Delivery 01/14/24 20:42 01/14/24 20:00 01/14/24 20:00 Temperature Pulse Rate 114 H 87 Respiratory Rate Blood Pressure Pulse Oximetry Oxygen Delivery Room Air 01/15/24 00:00 01/14/24 22:00 01/15/24 00:00 Temperature 97.7 F Pulse Rate 77 111 H 85 Respiratory Rate 12 Blood Pressure 124/70 Pulse Oximetry 95 Oxygen Delivery 01/15/24 00:00 01/15/24 02:00 01/15/24 04:27 Temperature 97.6 F Pulse Rate 79 75 Respiratory Rate 12 Blood Pressure 111/69 Pulse Oximetry 94 Oxygen Delivery Room Air 01/15/24 04:00 01/15/24 04:00 01/15/24 06:00 Temperature Pulse Rate 71 82 Respiratory Rate
[2024-01-15] MEDS: ATORVASTATIN 40 MG TABLET PO (21:21)
[2024-01-16] VITALS (11 sets, daily range): BP systolic 108–137; BP diastolic 64–94; PULSE 69–120; RESP 16–18; TEMP 36–36.4; O2SAT 95–99
[2024-01-16 04:32] LABS: Basophils Absolute Auto 0.1 K/mm3 (0.0-0.1); Basophils Percent Auto 0.7 % (0.2-1.2); Eosinophils Absolute Auto 0.2 K/mm3 (0-0.3); Eosinophils Percent Auto 1.1 % (0-4.4); Hematocrit 44.8 % (37.0-47.0); Hemoglobin 13.9 g/dL (12.0-15.0); Immature Granulocyte Absolute 0.09 K/mm3 (0.00-0.031); Immature Granulocyte Percent A 0.6 % (0-0.5); Lymphocytes Absolute Auto 2.24 K/mm3 (0.9-3.2); Lymphocytes Percent Auto 15.9 % (18.3-44.2); Mean Corpuscular Hemoglobin 27.5 pg (26-34); Mean Corpuscular Volume 88.7 fl (80-100); Mean Platelet Volume 10.1 fl (7.4-10.4); Monocytes Absolute Auto 1.2 K/mm3 (0.1-0.6); Monocytes Percent Auto 8.8 % (2.6-8.5); Neutrophils Absolute Auto 10.3 K/mm3 (1.3-6.7); Neutrophils Percent Auto 72.9 % (45.5-73.1); Platelet Count Result 383 k/mm3 (150-375); Red Blood Count 5.05 M/mm3 (4.2-5.4); Red Cell Distribution Width 13.5 % (11.5-14.5); White Blood Count 14.1 K/mm3 (4.5-10.0)
[2024-01-16] MEDS: METOPROLOL TARTRATE 12.5 MG TABLET PO (10:22)
[2024-01-16] MEDS: PANTOPRAZOLE 40 MG TABLET PO (10:22)
[2024-01-16] MEDS: APIXABAN 2.5 MG TABLET PO (10:22)
[2024-01-16] MEDS: METOPROLOL TARTRATE 50 MG TAB PO (10:23)
--- NOTE | 2024-01-16 15:45 | PM.DS ---
DS: Admitting Diagnosis Discharge Date 01/16/24 Admitting Diagnosis Altered mental status DS: Discharge Diagnosis Discharge Diagnosis (1) CVA (cerebral vascular accident): Code(s): I63.9 - Cerebral infarction, unspecified Status: Acute (2) A-fib: Code(s): I48.91 - Unspecified atrial fibrillation Status: Acute (3) Aphasia: Code(s): R47.01 - Aphasia Status: Acute (4) Gait abnormality: Code(s): R26.9 - Unspecified abnormalities of gait and mobility Status: Acute (5) GERD (gastroesophageal reflux disease): Code(s): K21.9 - Gastro-esophageal reflux disease without esophagitis Status: Acute DS: Summary Hospital Course Reason for hospitalization: 88yo female with recent left MCA CVA s/p tenecteplase sent in from rehab for altered mental status. Please see H&P for details. Hospital Course: Patient was found to be altered at the rehab facility. CXR showed mild pulmonary edema with cardiomegaly.? CT head without contrast showed acute versus subacute infarct involving left temporal occipital region and extensive nonspecific cerebral white matter disease which likely represents chronic small vessel ischemic disease. UA was negative. Labs unrevealing. Brain MRI showing acute infarct in the left temporal occipital region with foci of calcification versus microhemorrhage as well as acute infarct in left frontal lobe.? There is a foci of chronic cortical necrosis in left parietal lobe. Carotid US showing <50% stenosis in the bilateral internal carotid arteries.? There is flow reversal in the left vertebral artery.? 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 Brain MRA showed no aneurysm or significant intracranial arterial stenosis. Echo 01/07/24: EF 60-65%, left atrium has smoke but no discrete thrombus left and right atrial appendages showed reduced velocities but no thrombus aorta scattered mild atherosclerosis no clots or vegetations. Patient was on aspirin but has been changed to Eliquis because of her AFib.? We continued Lipitor.?Neurology consulted and appreciate their input. She worked with PT/OT/ST. AFib was noted last month and was started on Eliquis but patient did note start. Noted to be in AFib at rehab facility but Eliquis held due to recent CVA. Eliquis started here. Rate controlled with increased dose of Metoprolol. She did well and was able to be discharged to acute rehab on 01/16/24. Status at Discharge Cognitive/behavioral status at discharge: stable Time Spent with Patient Time attestation: Total time spent providing and/or coordinating discharge services: 35 minutes Time spent: Greater than 30 minutes Exam Narrative: AF 96.8 108/64 91 18 98% ra Gen - NARD Chest - CTA bilaterally, nml RR CV - irregular. Tele showing AFib with controlled rate Abd - Soft, NT/ND, Positive BS Ext - No pedal edema Neuro - expressive aphasia Psych - Nml mood and affect Skin - Warm and dry DS: Data Data Completed and Pending Labs on day of discharge: Labs from last 24 hours 01/16/24 01/13/24 01/13/24 04:16 03:39 03:33 WBC 14.1 H RBC 5.05 Hgb 13.9 Hct 44.8 MCV 88.7 MCH 27.5 MCHC 31.0 L RDW 13.5 Plt Count 383 H MPV 10.1 Immature Gran % (Auto) 0.6 H Neut % (Auto) 72.9 Lymph % (Auto) 15.9 L [place] % (Auto) 8.8 H Eos % (Auto) 1.1 Baso % (Auto) 0.7 Lymph # (Auto) 2.24 [place] # (Auto) 1.2 H Eos # (Auto) 0.2 Baso # (Auto) 0.1 Abs Immat Gran (auto) 0.09 H Absolute Neuts (auto) 10.3 H Absolute Nucleated RBC 0.000 Nucleated RBC % 0.0 Hemoglobin A1c 5.5 Triglycerides 126 Cholesterol 186 LDL Cholesterol Direct 128 HDL Direct 26 Vitamin B12 > 1000.0 H Vitamin D 25-Hydroxy 55.9 Folate > 20.0 H TSH 1.860 Thyroxine (T4) 12.70 H Free T3 pg/mL 2.4 Urine Color Urine Appearance Urine pH Ur Specific [place] Urine Protein Urine Glu
--- NOTE | 2024-01-16 16:51 | PC.NURSE ---
Patient discharged to [facility]. Transferred per family vehicle at 1645pm on 01/16/24. Son (Tucker) accompanied the patient.
== END 2024-01-16 16:45 | DRG 65 ==
LOC: ANHED 14:06 → ANHIMU 17:33
PROVIDERS: Psychiatry & Neurology Neurology; Admitting Provider Internal Medicine; Emergency Provider Preventive Medicine Aerospace Medicine; PCP Family Medicine; Visit Provider Internal Medicine
DX: I63.9 Cerebral infarction, unspecified (principal); I69.351 Hemiplegia and hemiparesis following cerebral infarction affecting right dominant side; R47.01 Aphasia; H53.9 Unspecified visual disturbance; R26.9 Unspecified abnormalities of gait and mobility; R41.0 Disorientation, unspecified; I48.91 Unspecified atrial fibrillation; K21.9 Gastro-esophageal reflux disease without esophagitis; E78.5 Hyperlipidemia, unspecified; E11.9 Type 2 diabetes mellitus without complications
CPT/HCPCS: 36415; 70450; 70544; 70551; 71045; 80048; 80053; 80061; 80307; 81001; 81003; 82306; 82607; 82746; 83036; 83735; 84436; 84443; 84480; 85025; 85610; 85730; 87637; 92507; 92523; 93005; 93880; 96372; 97110; 97161; 97166; 97530; 97535; 99285; A9270; G0378; J1650

== ENCOUNTER 2024-07-05 10:16 | Emergency (ER) | payer OTHER, SELFPAY ==
[2024-07-05] VITALS (22 sets, daily range): BP systolic 147–170; BP diastolic 95–142; PULSE 69–110; RESP 14–37; TEMP 36.4–36.6; O2SAT 91–100
--- NOTE | ~2024-07-05 | CT_ITS ---
EXAMINATION: CT brain wo con DATE: 07/05/2024 10:53 INDICATION: Fever. Aphasia. TECHNIQUE: Computed tomography (CT) of the head was performed without intravenous contrast. The mA wa s adjusted according to patient size. Iterative reconstruction technique was employed. The dose-lengt h product was 1362.00 mGy-cm. COMPARISON: Head CT 01/12/2024, brain MRI 01/13/2024 FINDINGS: There are old infarcts involving the left frontal, parietal, and occipital lobes and left i nsula. There are scattered areas of low attenuation in the cerebral white matter. There is no intracr anial hemorrhage, acute infarction, or abnormal intracranial mass lesion. There is ex vacuo dilatatio n of left lateral ventricle. There are likely changes of ocular lens replacement surgeries. There is mucosal thickening in the paranasal sinuses. The mastoid air cells are normal. IMPRESSION: 1. Old infarcts involving the left frontal, parietal, and occipital lobes and left insula. 2. Moderate nonspecific cerebral white matter disease, which likely represents chronic small vessel i schemic disease. Reviewed, dictated and finalized at location A. IMPRESSION: 1. Old infarcts involving the left frontal, parietal, and occipital lobes and l eft insula. 2. Moderate nonspecific cerebral white matter disease, which likely represents chronic small vessel ischemic disease.
--- NOTE | 2024-07-05 10:27 | ECG_ITS ---
Test Date: 2024-07-05 11:01:19 Measurements Intervals [place] Rate: 85 P: 0 NE: 0 QRS: 37 QRSD: 79 T: -1 QT: 375 QTc: 448 Interpretive Statements ATRIAL FIBRILLATION ABNORMAL RHYTHM ECG No previous ECG available for comparison Electronically Signed On 07-07-2024 11:56:46 CDT by Cathy Weston M.D.
--- NOTE | 2024-07-05 10:28 | PC.NURSE ---
Patient's daughter is now present, patient talking more at this time.
--- NOTE | 2024-07-05 10:34 | ED.GENADULT ---
HPI - General Adult General Chief complaint: Seizure Stated complaint: seizure activity Source: family and EMS Mode of arrival: ambulatory Limitations: no limitations History of Present Illness HPI narrative: 81-year-old white female history of AFib on Eliquis and stroke sitting on a couch today at her assisted living and had a seizure last about 2 minutes brought in by EMS blood sugar was 110 rhythm was AFib at a rate of 113 blood pressure 152/91 patient was postictal. No history of seizures in the past. Related Data Home Medications Medication Instructions Recorded Confirmed aspirin 325 mg tablet,delayed 325 mg PO DAILY 07/05/24 07/05/24 release furosemide 20 mg tablet 20 mg PO DAILY 07/05/24 07/05/24 metoprolol tartrate 25 mg tablet 50 mg PO Q12H 07/05/24 07/05/24 omeprazole 20 mg capsule,delayed 20 mg PO DAILY 07/05/24 07/05/24 release Allergies Allergy/AdvReac Type Severity Reaction Status Date / Time Penicillins Allergy Intermediate Swelling Verified 07/05/24 11:05 iodine Allergy Anaphylaxis Verified 07/05/24 11:05 shell fish Allergy Intermediate Unknown Uncoded 07/05/24 11:05 Review of Systems Review of Systems: ROS unobtainable: Yes unobtainable due to medical condition PMFSH Past Medical History Medical History A-fib Arthritis CVA (cerebral vascular accident) FH: HTN (hypertension) GERD (gastroesophageal reflux disease) Family History Family History Father Hypertension Mother Hypertension Cerebrovascular accident Sibling Hypertension Heart disease Social History Social History Social History: Caffeine-coffee Smoking packs per day: 1 Smoking cigarettes per day: 20.0 Smoking status: Former smoker Tobacco type: cigarettes Alcohol intake: never Substance use: never Substance use type: does not use Do You Feel Safe in your Home?: Yes Lack of Transportation: No Lack of Food: Never True Current Housing: I Have Housing Concerned About Future Housing: No Difficulty Paying Gas/Electric Bills: No Difficulty Paying for Meds: No Currently Unemployed: No Education: High School Diploma/GED Difficulty w/ Childcare or Family Care: No Occupation/Education: retired Gender identity (if verbalized by the patient): Female Spiritual care concerns: No Agree to blood products: Yes Exam Narrative: White female patient with no apparent distress But aphasic.? initially only word she said was high to the EMS person. Head normocephalic, atraumatic.? Eyes conjunctiva pink sclera nonicteric.? Extraocular movements are intact.? Ears externally normal.? Oropharynx is clear with moist mucous membranes without exudates.? Neck is supple nontender no lymphadenopathy.? Back is nontender.? Lungs are clear.? Heart is regular rate and rhythm without murmurs gallops or rubs.? Chest wall nontender. Abdomen is soft and nontender no hepatosplenomegaly or masses no CVA tenderness no abdominal bruits.? Extremities no cyanosis clubbing or edema.? Skin is warm and dry without rashes or lesions.? Neurological patient is alert and oriented x1. Initially aphasic and gradually continued to talk more more. Moves all extremities.? Motor and sensory grossly intact.? Gait Not tested Course Vital Signs Vital signs: Vital Signs Temperature 36.4 C 07/05/24 10:26 Pulse Rate 69 07/05/24 10:26 Respiratory Rate 20 07/05/24 10:26 Blood Pressure 161/95 H 07/05/24 10:26 Pulse Oximetry 100 07/05/24 10:26 Oxygen Delivery Room Air 07/05/24 10:26 Temperature 36.4 C 07/05/24 10:26 Pulse Rate 84 07/05/24 12:45 Respiratory Rate 14 07/05/24 12:45 Blood Pressure 170/103 H 07/05/24 12:36 Pulse Oximetry 80 L 07/05/24 12:31 Oxygen Delivery Room Air 07/05/24 10:37 Medical Decis
--- NOTE | 2024-07-05 11:00 | PC.NURSE ---
Daughter states patient has mild confusion due to previous strokes. AT this time , family feels like patient is baseline.
[2024-07-05 11:36] LABS: Hematocrit 42.2 % (35.0-42.0); Hemoglobin 13.4 g/dL (11.7-13.8); Mean Corpuscular HGB Conc 31.8 g/dL (32-36); Mean Corpuscular Volume 84.9 fL (78.0-102.0); Platelet Count Result 248 K/mm3 (150-420); Red Blood Count 4.97 M/mm3 (4.20-5.40); Red Cell Distribution Width 15.4 % (11.6-14.4); White Blood Count 12.3 K/mm3 (4.8-10.8)
[2024-07-05 11:49] LABS: Partial Thromboplastin Time 26.4 Sec (23.9-30.70); Prothrombin Time 10.9 Seconds (9.50-12.1)
[2024-07-05 11:53] LABS: Alanine Aminotransferase 25 U/L (14-59); Albumin Level 3.3 g/dL (3.4-5.0); Alkaline Phosphatase 142 U/L (46-116); Anion Gap 7 mmol/L (4-12); Aspartate Amino Transferase 28 U/L (15-37); Bilirubin,Total 0.6 mg/dL (0.00-1.00); Blood Urea Nitrogen 17 mg/dL (7-18); Calcium 9.1 mg/dL (8.5-10.1); Carbon Dioxide 33 mmol/L (21-32); Chloride 101 mmol/L (98-108); Estimated CRCL calculation 25 ml/min; Estimated Glomerular Filt Rate 50; Glucose 120 mg/dL (70-99); Magnesium 2.2 mg/dL (1.8-2.4); Osmolality Calculated 294 mOsm/kg (285-295); Potassium 3.2 mmol/L (3.5-5.1); Sodium 141 mmol/L (136-145); Total Protein 7.2 g/dL (6.4-8.2); Troponin I 14.2 ng/L (0.00-60.4)
[2024-07-05 12:18] LABS: Add Urine Microscopic? YES; Bilirubin Urine Negative (Negative); Blood Urine Negative (Negative); Color Urine Light Yellow (Yellow); Glucose Urine UA Negative (Negative); Ketones Urine Negative (Negative); Leukocyte Esterase Ur Trace LEU/UL (Negative); Nitrate Urine Negative (Negative); Protein Urine Negative (Negative); Urobilinogen Urine 0.2 mg/dL (0.2-1.0)
[2024-07-05 12:22] LABS: Appearance Urine Cloudy (Clear)
[2024-07-05 12:27] LABS: WBC Urine None seen /hpf (0-3)
--- NOTE | 2024-07-05 12:42 | PC.NURSE ---
Patient ambulated around the room with help of RN. patient uses walker around her home. Patient was steady on her feet, denied any lighheaded or dizziness.
== END 2024-07-05 13:00 ==
PROVIDERS: Emergency Provider Emergency Medicine; PCP Family Medicine
DX: R56.9 Unspecified convulsions (principal); I10 Essential (primary) hypertension; I48.91 Unspecified atrial fibrillation; Z79.01 Long term (current) use of anticoagulants; Z86.73 Personal history of transient ischemic attack (TIA), and cerebral infarction without residual deficits; Z79.82 Long term (current) use of aspirin; Z87.891 Personal history of nicotine dependence
CPT/HCPCS: 36415; 70450; 80053; 81001; 83735; 84484; 85027; 85610; 85730; 93005; 99284